=== PATIENT | female | born 1965 | race Caucasian/White ===

== ENCOUNTER → 2016-12-25 | Outpatient (CLI) | payer MEDICARE, BC ==
[~2016-12-25] MED LIST: ALBU0.63 NEB; ASPI81TA2 PO; FLUT1DIS3 IH; GABA-586 PO; HYDR-2762 PO; IPRA0.2S5 NEB; MOME13HF IH; OXYC10TA32 PO; POTA20TA12 PO; ROPI0.5T PO; THEO400T2 PO
--- NOTE | 2016-12-25 15:48 | RAD ---
Thyroid ultrasound, 12/25/2016: History: Possible thyroid nodule The right lobe of the gland measures 4.9 x 1.5 x 1.6 cm while the left lobe of the gland measures 4.5 x 1.2 x 1.1 cm. The echo pattern of the gland is mildly heterogeneous. There is a 2 mm hypoechoic nodule at the junction of the right lobe of the gland and the isthmus. A similar small nodule is seen at the junction of the left lobe of the gland and the isthmus. These nodules demonstrate smooth margins. The left nodule demonstrates posterior acoustic enhancement and is probably a colloid cyst. The features of the tiny right nodule are nonspecific. No thyroid calcifications are identified. No other thyroid abnormality is seen. IMPRESSION: 1. Tiny nonspecific right thyroid nodule. Sonographic follow-up may be useful to establish stability. 2. Tiny left thyroid cyst.
== END | disposition home or self-care (01) ==
LOC: US 10:45
PROVIDERS: ATTEND Nurse Practitioner
DX: E04.1 Nontoxic single thyroid nodule (principal)
CPT/HCPCS: 76536

== ENCOUNTER → 2017-01-13 | Outpatient (CLI) | payer MEDICARE, BC ==
--- NOTE | 2017-01-13 12:29 | RAD ---
Right hip, single view, 01/13/2017: History: Fall, pain A single frog-leg view of the right hip is presented for review. This limited exam demonstrates no acute fracture or dislocation. Right RIBS, 2 views, 01/13/2017: The bony structures are demineralized. No rib fracture is identified. There is no evidence of underlying pneumothorax or hemothorax. IMPRESSION: 1. Demineralization. 2. No acute right rib abnormality is detected.
== END | disposition home or self-care (01) ==
LOC: DXRADRC 10:17
PROVIDERS: ATTEND Physician Assistant Medical
DX: M25.551 Pain in right hip (principal); R07.81 Pleurodynia; M81.0 Age-related osteoporosis without current pathological fracture; W19.XXXA Unspecified fall, initial encounter; Y93.89 Activity, other specified; Y92.89 Other specified places as the place of occurrence of the external cause; Y99.8 Other external cause status
CPT/HCPCS: 71100; 73501

== ENCOUNTER → 2017-01-30 | Outpatient (CLI) | payer MEDICARE, BC ==
[~2017-01-30] MED LIST changes: +ASPI-630 PO; -ASPI81TA2 PO; -OXYC10TA32 PO; +OXYC10TA45 PO
--- NOTE | 2017-01-30 15:01 | RAD ---
CT head without contrast History: History of fall 2 weeks back, hit head, dizziness. Comparison: 12/02/2011. Procedure: Axial images are obtained of the head from the skull base through the vertex without IV contrast. Findings: The ventricles and sulci are normal for the patient's age. No mass-effect, intracranial mass, midline shift, hemorrhage or obvious acute infarction is identified. Basilar cisterns are patent. Bone windows demonstrate no significant calvarial abnormality. The visualized paranasal sinuses appear clear. Faint hyperdensities identified in the bilateral temporal lobe region likely artifactual due to motion artifact. Impression: 1. No acute intracranial process. Faint hyperdensity seen in the bilateral temporal lobes probably artifactual due to motion. PQRS Compliance Statement: One or more of the following individualized dose reduction techniques were utilized for this examination: 1. Automated exposure control 2. Adjustment of the mA and/or kV according to patient size 3. Use of iterative reconstruction technique
== END | disposition home or self-care (01) ==
LOC: CT 14:22
PROVIDERS: ATTEND Physician Assistant Medical
DX: W19.XXXA Unspecified fall, initial encounter (principal); R42 Dizziness and giddiness
CPT/HCPCS: 70450

== ENCOUNTER 2017-04-09 06:48 | Emergency (ER) | payer MEDICARE, BC ==
[~2017-04-09] VITALS: Ht 167.6 cm; Wt 50.8 kg
[2017-04-09] MEDS ORDERED: LIDOCAINE WITH 8.4% SOD BICARB 3 ML DISP.SYRIN. IJ ONE (06:58)
[2017-04-09] MEDS ORDERED: TETANUS AND DIPHTHERIA TOX/PF 0.5 ML VIAL. VAX IM ONE (07:15)
[2017-04-09] MEDS ORDERED: AMOX1TAB61 PO (07:19)
--- NOTE | 2017-04-09 07:19 | PHYS DOC ---
Past History Past Medical History: CVA Past Surgical History: Hysterectomy Alcohol Use: Occasionally Drug Use: None Adult General Chief Complaint Chief Complaint: LACERATION/AVULSION HPI HPI This is a pleasant right hand dominant 51-year-old female with a history of COPD and stroke in the past but presents the emergency department today with a right hand laceration of the dorsum of her right thumb. It occurred was she was breaking up a fight between her cat and dog when the cat scratched her. She has mild pain that is nonradiating without alleviating factors and is constant. She denies any other injuries. Review of systems was negative for chest pain shortness of breath abdominal pain or any other injuries. All other review of systems is negative unless otherwise noted in history of present illness. ED course: 51-year-old female presenting to the emergency department with a scratch over the dorsum of her right hand. Pertinent physical exam findings showed a superficial laceration over the dorsum of the right thumb. No foreign bodies on inspection. The laceration was inspected under good lighting with good hemostasis and was found to be without any foreign bodies or tendon lacerations. It was inspected under full range of motion of the thumb. The wound was washed out with about 1 L of sterile saline under mild pressure and cleansed with Betadine. I had a risk-benefit discussion with the patient about possible closure by secondary intention or delayed suture repair due to concern for possible infection. Collectively, we decided to wash it out today and close it primarily. The patient's cat is up-to-date on vaccines and has not been foaming at the mouth. No evidence of hydro-phobia. The patient states that she can watch her animal and observe for signs of rabies. The patient was then discharged home in stable condition to follow up with their primary care physician over the next 7 days for suture removal. They were to return if their symptoms worsened or if they were concerned for any reason. [id number] discharge instructions and return precautions were given. Patient's questions were answered to their satisfaction. Patient is comfortable plan. Review of Systems Review of Systems SEE ABOVE. Current Medications Current Medications Current Medications Medications (Trade) Dose Ordered Sig/La Nena Start Time Stop Time Status Last Admin Dose Admin Diphtheria/ Tetanus/Acell Pertussis (Boostrix) 0.5 ml ONCE ONCE 04/09/17 07:30 04/09/17 07:31 Lidocaine/Sodium Bicarbonate (Buffered Lidocaine 1%) 3 ml STK-MED ONCE 04/09/17 06:58 04/09/17 06:59 DC Tetanus/ Diphtheria Toxoids Adsorbed (Tenivac Vial) 0.5 ml ONCE ONCE 04/09/17 07:15 04/09/17 07:16 UNV Allergies Allergies Allergies Coded Allergies Type Severity Reaction Last Updated Verified Sulfa (Sulfonamide Antibiotics) Allergy Unknown 12/13/14 Yes Physical Exam Physical Exam see above Constitutional: Well developed, well nourished, no acute distress, non-toxic appearance. [] HENT: Normocephalic, atraumatic, bilateral external ears normal, oropharynx moist, no oral exudates, nose normal. [] Eyes: PERRLA, EOMI, conjunctiva normal, no discharge. [] Neck: Normal range of motion, no tenderness, supple, no stridor. [] Cardiovascular:Heart rate regular rhythm, no murmur [] Lungs & Thorax: Bilateral breath sounds clear to auscultation [] Abdomen: Bowel sounds normal, soft, no tenderness, no masses, no pulsatile masses. [] Skin: Warm, dry, no erythema, no rash. [] Back: No tenderness, no CVA tenderness. [] Extremities: see above Neurologic: Alert and oriented X 3, normal motor function, normal sensory function, no focal deficits noted. [] Psychologic: Affect normal, judgement normal, mood normal. [] Current Patient Data Vital Signs Vital Signs Date Time Temp Pulse Resp B/P (MAP) Pulse Ox O2 Delivery O2 Flow Rate FiO2 04/09/17 07:10 98.1 120 18 93 Room Air EKG EKG [] Radiology/Procedures Radiology/Procedures [] Course & Med Decision Making Course & Med Decision Making Pertinent Labs and Imaging studies reviewed. (See chart for details) [] Dragon Disclaimer Dragon Disclaimer This chart was dictated in whole or in part using Voice Recognition software in a busy, high-work load, and often noisy Emergency Department environment. It may contain unintended and wholly unrecognized errors or omissions. Departure Departure: Impression: Primary Impression: Hand laceration Disposition: HOME, SELF-CARE Condition: STABLE Referrals: LEX MCHUGH (PCP) Patient Instructions: Laceration Care, Adult Additional Instructions: Thank you for allowing us to participate in your care today. Followup with your primary care physician in 7 days for suture removal. Call your Primary Doctor tomorrow and inform them of your visit today. If you do not have a primary care provider you can ask for a list of our primary care providers. Return to the emergency department you have any new or concerning findings. This should be evaluated by the primary care physician and any necessary consulting services for continued management within a few days after discharge. Return to emergency room if you have any new or concerning symptoms including but not limited to fever, chills, nausea, vomiting, intractable pain, any new rashes, chest pain, shortness of air, uncontrolled bleeding, difficulty breathing, and/or vision loss. Scripts Amoxicillin/Potassium Clav (AUGMENTIN 875-125 TABLET) 1 Each Tablet 1 TAB PO BID, #20 TAB Prov: BLU NAQVI MD 04/09/17 Laceration Repair Lac Repair Indication: [] Hand laceration Procedure: The patient was placed in the appropriate position and anesthesia around the right hand. 1% buffered lidocaine used for anesthesia. The area was washed out with sterile saline approximately 1 L with mild to moderate pressure along with cleansing of the hand with Betadine and allowing for sufficient drying time. Laceration was then closed using a simple interrupted technique using 5 nonabsorbable 5-0 sutures. Total repaired wound length: 2.5 cm. Other Items: The patient tolerated the procedure well. Complications: none. BLU NAQVI MD Apr 09, 2017 07:19
[2017-04-09] MEDS ORDERED: DIPHTH,PERTUSS(ACELL),TET TOX 0.5 ML DISP.SYRIN. VAX IM ONE (07:30)
[2017-04-09 07:33] VITALS: BP 122/53
== END 2017-04-09 07:35 | disposition home or self-care (01) ==
LOC: ER 06:48
DX: S61.011A Laceration without foreign body of right thumb without damage to nail, initial encounter (principal); J44.9 Chronic obstructive pulmonary disease, unspecified; Z86.73 Personal history of transient ischemic attack (TIA), and cerebral infarction without residual deficits; Z88.2 Allergy status to sulfonamides; W55.03XA Scratched by cat, initial encounter; Y93.89 Activity, other specified; Y99.8 Other external cause status; Y92.89 Other specified places as the place of occurrence of the external cause
CPT/HCPCS: 12001; 90471; 90715; 99283-25

== ENCOUNTER → 2017-06-02 | Outpatient (CLI) | payer MEDICARE, BC ==
[~2017-06-02] MED LIST changes: +AMOX1TAB61 PO
--- NOTE | 2017-06-02 13:40 | RAD ---
Indication chest congestion and productive cough for one week. Frontal and lateral views of the chest were obtained and are compared to a study 01/13/2017. There are background changes compatible with emphysema or fibrosis similar to the previous exam. There is no consolidated pneumonia significant pleural fluid collection or pneumothorax. Mild hyperexpansion is noted. IMPRESSION: Chronic changes. No acute finding seen.
== END | disposition home or self-care (01) ==
LOC: DXRADRC 13:08
PROVIDERS: ATTEND Physician Assistant Medical
DX: R09.89 Other specified symptoms and signs involving the circulatory and respiratory systems (principal); R05 Cough
CPT/HCPCS: 71020

== ENCOUNTER → 2017-07-10 | Outpatient (CLI) | payer BC, MEDICARE ==
--- NOTE | 2017-07-10 08:32 | RAD ---
INDICATION: CHEST CONGESTION W PROD COUGH X 4 DAYS COMPARISON: 06/02/2017 FINDINGS: 2 views chest obtained. Coarsened interstitial markings are again seen throughout the bilateral lungs. No definite focal airspace consolidation. Calcific atherosclerosis. IMPRESSION: Coarsened lung markings are again seen throughout the bilateral lungs. Could be secondary to chronic lung disease such as emphysema or fibrosis. No definite new region of focal airspace consolidation.
== END | disposition home or self-care (01) ==
LOC: DXRADRC 08:03
PROVIDERS: ATTEND Physician Assistant Medical
DX: R09.89 Other specified symptoms and signs involving the circulatory and respiratory systems (principal); R05 Cough; I70.90 Unspecified atherosclerosis; F17.210 Nicotine dependence, cigarettes, uncomplicated
CPT/HCPCS: 71020

== ENCOUNTER → 2017-08-28 | Outpatient (CLI) | payer MEDICARE, BC ==
--- NOTE | 2017-08-28 13:52 | RAD ---
Chest, 2 views, 08/28/2017: History: Cough, congestion Comparison is made to a study from 07/10/2017. The lungs are hyperexpanded suggesting emphysema. There is pleural scarring over the apices. There appear to be a few other scattered parenchymal scars. The heart size is within normal limits. There is calcific plaquing of the aorta. No acute infiltrate is seen. There is no evidence of pleural fluid. Surgical clips are projected over the left axillary region. IMPRESSION: 1. Emphysema with parenchymal scarring. 2. No acute cardiopulmonary abnormality is detected.
== END | disposition home or self-care (01) ==
LOC: PMG 13:21
PROVIDERS: ATTEND Physician Assistant Medical
DX: J43.9 Emphysema, unspecified (principal); J98.4 Other disorders of lung; F17.200 Nicotine dependence, unspecified, uncomplicated; Z72.89 Other problems related to lifestyle
CPT/HCPCS: 71020

== ENCOUNTER 2017-10-10 18:06 | Inpatient (IN) | payer MEDICARE, BC ==
[~2017-10-10] VITALS: Ht 165.1 cm; Wt 46.9 kg
--- NOTE | 2017-10-10 18:19 | ED.ADGEN ---
Past History Past Medical History: CVA Past Surgical History: Hysterectomy Alcohol Use: Occasionally Drug Use: None Adult General Chief Complaint Chief Complaint " I all sudden got chest pain today while walking.. [place].... and it has never gone away.. I did have some interment temps the last three days... and some coughing.. I do have asthma and copd....and everyone around me have had colds and flu..."" I did get a flu shot this year..." HPI HPI Patient is a 51 year old female who presents with above hx and complaints of myalgia, arthralgia, malaise, fever, nonproductive cough, and chest pain. Patient denies any specific ill contacts. No recent travel. No history immunosuppression. Patient does have a history of chronic lung disease with history of COPD and asthma. Patient reports chest pain is left chest wall and exacerbated by deep breaths and cough. Patient normally follows with Dr. Prescott. Review of Systems Review of Systems Constitutional: History of fever or chills [] Eyes: Denies change in visual acuity, redness, or eye pain [] HENT: History of nasal congestion or sore throat [] Respiratory: History of a nonproductive cough and shortness of breath [] Cardiovascular: No additional information not addressed in HPI [] GI: Denies abdominal pain, nausea, vomiting, bloody stools or diarrhea [] : Denies dysuria or hematuria [] Musculoskeletal: Denies back pain or joint pain [] Integument: Denies rash or skin lesions [] Neurologic: Denies headache, focal weakness or sensory changes [] Endocrine: Denies polyuria or polydipsia [] All other systems were reviewed and found to be within normal limits, except as documented in this note. Family History Family History Noncontributory Current Medications Current Medications Current Medications Medications (Trade) Dose Ordered Sig/La Nena Start Time Stop Time Status Last Admin Dose Admin Albuterol/ Ipratropium (Duoneb) 3 ml 1X ONCE 10/10/17 19:00 10/10/17 19:01 DC Aspirin (Children'S Aspirin) 324 mg 1X ONCE 10/10/17 19:00 10/10/17 19:01 DC 10/10/17 19:35 324 MG Enoxaparin Sodium (Lovenox) 50 mg 1X ONCE 10/11/17 00:30 10/11/17 00:31 DC Info (Do NOT chart on this entry -- for MONITORING) 1 each PRN DAILY PRN 10/10/17 23:15 10/12/17 23:14 Iohexol (Omnipaque 300 Mg/ml) 75 ml 1X ONCE 10/10/17 23:15 10/10/17 23:16 DC 10/11/17 01:18 75 ML Methylprednisolone Sodium Succinate (SOLU-Medrol 125MG VIAL) 125 mg 1X ONCE 10/10/17 19:00 10/10/17 19:01 DC 10/10/17 19:25 125 MG Ondansetron HCl (Zofran) 4 mg PRN Q4HRS PRN 10/11/17 01:15 10/12/17 01:14 Allergies Allergies Allergies Coded Allergies Type Severity Reaction Last Updated Verified Sulfa (Sulfonamide Antibiotics) Allergy Unknown 12/13/14 Yes Physical Exam Physical Exam Constitutional: Moderately acute acute distress, non-toxic appearance. [] HENT: Normocephalic, atraumatic, bilateral external ears normal, oropharynx moist, injected pharynx, no oral exudates, nose swollen turbinates with rhinorrhea Eyes: PERRLA, EOMI, conjunctiva normal, no discharge. [] Neck: Normal range of motion, no tenderness, supple, no stridor. [] Cardiovascular: Tachycardia Heart rate regular rhythm, no murmur [] Lungs & Thorax: Bilateral breath sounds equal at apexes with scattered wheezes on auscultation []left chest wall tenderness on palpation anterior axillary line at T8-9 Abdomen: Bowel sounds normal, soft, no tenderness, no masses, no pulsatile masses. Scar Skin: Warm, dry, no erythema, no rash. [] Back: No tenderness, no CVA tenderness. [] Extremities: No tenderness, no cyanosis, no clubbing, ROM intact, no edema. No obvious cording Neurologic: Alert and oriented X 3, normal motor function, normal sensory function, no focal deficits noted. [] Psychologic: Affect anxious, judgement normal, mood normal. [] Current Patient Data Vital Signs Vital Signs Date Time Temp Pulse Resp B/P (MAP) Pulse Ox O2 Delivery O2 Flow Rate FiO2 10/10/17 18:29 99 Nasal Cannula 2.0 10/10/17 18:15 99.7 125 22 Lab Results Laboratory Tests Test 10/10/17 19:00 10/10/17 19:20 Influenza Type A (Rapid) Negative (NEGATIVE) Influenza Type B (Rapid) Negative (NEGATIVE) Group A Streptococcus Rapid Negative (NEGATIVE) White Blood Count 13.8 x10^3/uL (4.0-11.0) H Red Blood Count 3.97 x10^6/uL (3.50-5.40) Hemoglobin 12.2 g/dL (12.0-15.5) Hematocrit 36.1 % (36.0-47.0) Mean Corpuscular Volume 91 fL (79-100) Mean Corpuscular Hemoglobin 31 pg (25-35) Mean Corpuscular Hemoglobin Concent 34 g/dL (31-37) Red Cell Distribution Width 13.9 % (11.5-14.5) Platelet Count 327 x10^3/uL (140-400) Neutrophils (%) (Auto) 85 % (31-73) H Lymphocytes (%) (Auto) 7 % (24-48) L Monocytes (%) (Auto) 8 % (0-9) Eosinophils (%) (Auto) 0 % (0-3) Basophils (%) (Auto) 0 % (0-3) Neutrophils # (Auto) 11.7 x10^3uL (1.8-7.7) H Lymphocytes # (Auto) 1.0 x10^3/uL (1.0-4.8) Monocytes # (Auto) 1.0 x10^3/uL (0.0-1.1) Eosinophils # (Auto) 0.0 x10^3/uL (0.0-0.7) Basophils # (Auto) 0.0 x10^3/uL (0.0-0.2) Prothrombin Time 11.6 SEC (9.4-11.4) H Prothrombin Time INR 1.1 (0.9-1.1) PTT 28 SEC (23-33) D-Dimer (Tere) 0.93 mg/L (0.00-0.50) H Sodium Level 138 mmol/L (136-145) Potassium Level 3.9 mmol/L (3.5-5.1) Chloride Level 101 mmol/L (98-107) Carbon Dioxide Level 31 mmol/L (21-32) Anion Gap 6 (6-14) Blood Urea Nitrogen 14 mg/dL (7-20) Creatinine 0.7 mg/dL (0.6-1.0) Estimated GFR (Cockcroft-Gault) 87.9 Glucose Level 124 mg/dL (70-99) H Calcium Level 8.9 mg/dL (8.5-10.1) Magnesium Level 1.8 mg/dL (1.8-2.4) Total Bilirubin 0.7 mg/dL (0.2-1.0) Direct Bilirubin 0.2 mg/dL (0.0-0.2) Aspartate Amino Transferase (AST) 16 U/L (15-37) Alanine Aminotransferase (ALT) 13 U/L (14-59) L Alkaline Phosphatase 87 U/L (46-116) Creatine Kinase 39 U/L (26-192) Creatine Kinase MB (Mass) < 0.5 ng/mL (0.0-3.6) Creatine Kinase MB Relative Index 1.3 % (0-4) Troponin I Quantitative < 0.017 ng/mL (0-0.055) WZ-Ajl-E-Type Natriuretic Peptide 275 pg/mL (0-124) H Total Protein 7.0 g/dL (6.4-8.2) Albumin 2.9 g/dL (3.4-5.0) L Lipase 60 U/L (73-393) L EKG EKG My interpretation EKG shows a sinus tachycardia at 130 bpm. Strain pattern. But no findings acute STEMI of contralateral changes[] Radiology/Procedures Radiology/Procedures My interpretation of chest x-ray shows chronic emphysema/COPD type changes. Lung volumes appear to be hyperexpanded and cystic changes with adenopathy. CT shows no central pulmonary embolism. Does have findings of hilar adenopathy. And chronic emphysema changes. See formal report when available Course & Med Decision Making Course & Med Decision Making Pertinent Labs and Imaging studies reviewed. (See chart for details) Stress presentation testing and treatment plan with Dr. Marquez-will admit for further evaluation and treatment. [] Final Impression Final Impression 1. Dyspnea[] 2. COPD exacerbation 3. Leukocytosis, 4. Malnutrition Alb. 2.9 5. Elevated D-dimer 6. DM 7. Chest Pain Problems: Dragon Disclaimer Dragon Disclaimer This electronic medical record was generated, in whole or in part, using a voice recognition dictation system. DAMON GOINS MD Oct 10, 2017 18:19
[2017-10-10] MEDS ORDERED: IPRATRPIUM/ALBUTEROL 0.5/2.5MG 3 ML NEBU. ONE (18:23)
[2017-10-10] MEDS ORDERED: methylPREDNISolone SOD SUCC PF 125 MG/2 ML VIAL. IV ONE (19:00)
[2017-10-10] MEDS ORDERED: ASPIRIN 81 MG TAB.CHEW PO ONE (19:00)
[2017-10-10] MEDS ORDERED: IPRATRPIUM/ALBUTEROL 0.5/2.5MG 3 ML NEBU. NEB ONE (19:00)
[2017-10-10 19:45] LABS: BASO % 0 % (0-3); EOS % 0 % (0-3); HEMATOCRIT 36.1 % (36.0-47.0); HEMOGLOBIN 12.2 g/dL (12.0-15.5); LYMPH % 7 % (24-48); MEAN CORPUSCULAR HEMOGLOBIN 31 pg (25-35); MEAN CORPUSCULAR HGB CONC 34 g/dL (31-37); MEAN CORPUSCULAR VOLUME 91 fL (79-100); MONO % 8 % (0-9); NEUT # 11.7 x10^3uL (1.8-7.7); NEUT % 85 % (31-73); PLATELET COUNT 327 x10^3/uL (140-400); RED BLOOD COUNT 3.97 x10^6/uL (3.50-5.40); RED CELL DISTRIBUTION WIDTH 13.9 % (11.5-14.5); WHITE BLOOD COUNT 13.8 x10^3/uL (4.0-11.0)
--- NOTE | 2017-10-10 19:57 | EKG ---
[address] [address] Test Date: 2017-10-10 Test Time: 18:17:17 Pat Name: LIZBETH OHARA Department: Room: Gender: F Wound Specialist: JESSY : 1965 Requested By: DAMON GOINS Order Number: [id number] Reading MD: Lamine Knight MD Measurements Intervals Stanley Rate: 130 P: 90 [place]: 106 QRS: 77 QRSD: 70 T: 85 QT: 274 QTc: 403 Interpretive Statements SINUS TACHYCARDIA Electronically Signed On 10-13-2017 17:22:37 [employer]IC by Lamine Knight MD
[2017-10-10 20:09] LABS: ALBUMIN 2.9 g/dL (3.4-5.0); ALK PHOS 87 U/L (46-116); ALT (SGPT) 13 U/L (14-59); ANION GAP 6 (6-14); AST (SGOT) 16 U/L (15-37); BLOOD UREA NITROGEN 14 mg/dL (7-20); CALCIUM 8.9 mg/dL (8.5-10.1); CARBON DIOXIDE 31 mmol/L (21-32); CHLORIDE 101 mmol/L (98-107); CREATINE KINASE 39 U/L (26-192); CREATININE 0.7 mg/dL (0.6-1.0); GFR 87.9; GLUCOSE 124 mg/dL (70-99); LIPASE 60 U/L (73-393); MAGNESIUM 1.8 mg/dL (1.8-2.4); POTASSIUM 3.9 mmol/L (3.5-5.1); SODIUM 138 mmol/L (136-145); TOTAL BILIRUBIN 0.7 mg/dL (0.2-1.0)
[2017-10-10 20:11] LABS: DIRECT BILIRUBIN 0.2 mg/dL (0.0-0.2)
[2017-10-10 20:19] LABS: INFLUENZA A PATIENT NEGATIVE (NEGATIVE); INFLUENZA B PATIENT NEGATIVE (NEGATIVE)
[2017-10-10] MEDS ORDERED: CONTRAST GIVEN MC PRN (23:15)
[2017-10-10] MEDS ORDERED: IOHEXOL 300 MG/ML 75 ML VIAL. IV ONE (23:15)
[2017-10-11] MEDS: ENOXAPARIN 40 MG/0.4 ML DISP.SYRIN. SQ ONE (00:30)
[2017-10-11] MEDS ORDERED: ONDANSETRON PF 4 MG/2 ML VIAL. IV PRN (01:15)
--- NOTE | 2017-10-11 01:34 | RAD ---
INDICATION: Omni 300, 75 ml IV. Elevated d-dimer. No prior exams for comparison COMPARISON: None. TECHNIQUE: Axial CT images obtained through the chest. Intravenous contrast utilized. Angiogram 3D images processed per protocol. One or more of the following individualized dose reduction techniques were utilized for this examination: 1. Automated exposure control; 2. Adjustment of the mA and/or kV according to patient size; 3. Use of iterative reconstruction technique. FINDINGS: Hyperexpanded lungs with cystic changes throughout the bilateral lungs. Subpleural opacity is seen within the left lung anteriorly. There is also patchy nodular opacity near the left lung base with some on the right as well including of the right lung base. No evidence of pneumothorax. Calcific atherosclerosis. Portion of ascending thoracic aorta is obscured by motion but no definite aneurysm or dissection flap. There are some enlarged lymph nodes at bilateral hilum and mediastinum. No central pulmonary embolus. IMPRESSION: 1. No central pulmonary embolus. 2. Patchy masslike opacities in bilateral lungs. Could be infectious or inflammatory in nature but a follow-up will be needed to ensure that these resolve to ensure that this is not secondary to neoplastic causes. There is also mediastinal and hilar lymphadenopathy. This could be reactive in nature but neoplastic causes are within the differential and follow-up will be needed. 3. Cystic changes throughout the lungs which can be seen with chronic lung disease such as emphysema. Electronically signed by: Sideny Sanchez MD (10/11/2017 1:31 AM) [facility]
[2017-10-11] MEDS ORDERED: ENOXAPARIN ** NOTE DOSE ** SYRINGE SQ ONE ×2 (01:56→02:00)
[2017-10-11] MEDS ORDERED: IPRATRPIUM/ALBUTEROL 0.5/2.5MG 3 ML NEBU. NEB ONE (02:00)
[2017-10-11 03:41] VITALS: BP 130/82
[2017-10-11] MEDS ORDERED: ALBU8.5H8 INH (04:24)
[2017-10-11] MEDS ORDERED: OXYC15TA PO (04:24)
[2017-10-11] MEDS ORDERED: ROPI0.5T2 PO (04:24)
[2017-10-11] MEDS ORDERED: FLUT12AE INH (04:24)
[2017-10-11] MEDS ORDERED: TIOT4MIS3 IH (04:24)
[2017-10-11] MEDS ORDERED: CHOL500050 PO (04:24)
[2017-10-11] MEDS ORDERED: OMEP40CA5 PO (04:24)
[2017-10-11] MEDS ORDERED: IPRATRPIUM/ALBUTEROL 0.5/2.5MG 3 ML NEBU. NEB SCH ×2 (08:00→12:00)
[2017-10-11] MEDS ORDERED: ENOXAPARIN ** NOTE DOSE ** SYRINGE SQ SCH (09:00)
[2017-10-11] MEDS ORDERED: AZITHROMYCIN 250 MG TABLET. PO SCH (09:00)
[2017-10-11] MEDS ORDERED: methylPREDNISolone SOD SUCC PF 40 MG/ML VIAL. IV SCH (09:00)
[2017-10-11] MEDS ORDERED: LACTOBACILLUS RHAMNOSUS GG 1 CAPSULE. PO SCH (09:00)
[2017-10-11] MEDS ORDERED: cefTRIAXone IV Push 1 GM VIAL. IVP SCH (09:00)
[2017-10-11] MEDS ORDERED: ASPIRIN 81 MG TAB.CHEW PO SCH ×2 (09:00→10:00)
--- NOTE | 2017-10-11 09:01 | RAD ---
Indication: Dyspnea. Lower rib pain with inspiration. Breast cancer with left lumpectomy. Technique: Two-view chest radiograph was obtained. Comparison is from August 28, 2017. Findings: There is hyperinflation with flattening of the diaphragm. Interstitial lung markings are coarsened. There is no airspace disease. There is no pleural effusion. The heart is not enlarged and there is no heart failure. Left axillary clips are noted. Impression: Findings suggesting emphysema.
[2017-10-11] MEDS ORDERED: FLUTICASONE PROPIONATE 110 MCG INH PRN (09:15)
[2017-10-11] MEDS ORDERED: ALBUTEROL SULFATE 8GM INHALER. INH PRN (09:15)
[2017-10-11] MEDS ORDERED: ALBUTEROL SULFATE 2.5 MG/3 ML NEBU. NEB PRN (09:30)
[2017-10-11] MEDS ORDERED: BUDESONIDE 0.5 MG/2 ML NEBU NEB SCH (10:00)
[2017-10-11] MEDS ORDERED: PANTOPRAZOLE 40 MG TABLET. PO SCH (10:00)
[2017-10-11] MEDS ORDERED: oxyCODONE IR 5 MG TABLET PO PRN (10:00)
[2017-10-11] MEDS ORDERED: POTASSIUM CHLORIDE 20 MEQ TABLET.ER. PO SCH (10:00)
[2017-10-11] MEDS ORDERED: THEOPHYLLINE ANHYDROUS 400 MG TABLET.ER. PO SCH (10:00)
[2017-10-11] MEDS ORDERED: oxyCODONE IR 5 MG TABLET ONE (10:47)
[2017-10-11] MEDS ORDERED: DOXY100C2 PO (11:16)
[2017-10-11] MEDS ORDERED: PRED-220 PO (11:16)
[2017-10-11 11:39] VITALS: BP 122/79
[2017-10-11] MEDS ORDERED: GABAPENTIN 300 MG CAPSULE. PO SCH (14:00)
[2017-10-11] MEDS ORDERED: rOPINIRole 0.5 MG TABLET. PO SCH (21:00)
[2017-10-12] MEDS ORDERED: NON FORMULARY ITEM (Tiotropium Br/Olodaterol HCl (Stiolto Respimat Inhal Spray) 4 GM) IH SCH (09:00)
[2017-10-12] MEDS ORDERED: ENOXAPARIN 30 MG/0.3 ML DISP.SYRIN. SQ SCH (09:00)
--- NOTE | 2017-10-12 10:36 | SSS ---
ADMIT DATE: 10/11/2017 Stay was greater than 8 hours and less than 24 hours. Care was given by myself. DISCHARGE DIAGNOSES: 1. Acute bronchitis. 2. Exacerbation of chronic obstructive pulmonary disease. 3. Febrile illness, suspect pneumonia. 4. Abnormal CAT scan with an abnormal CT of the chest showing patchy mass-like opacities in both lungs. Consider infectious or inflammatory, also mediastinal and hilar lymphadenopathy. 5. Elevated D-dimer, pulmonary embolism ruled out. 6. History of breast cancer. A 14-year long-term survival, but must be concerned regarding the CT scan. Please note the patient basically insisted on being discharged today because of family circumstances. HISTORY OF PRESENT ILLNESS AND HOSPITAL COURSE: This is a 51-year-old female with COPD, oxygen requiring, and hypoxic respiratory failure with a long history of smoking, having quit, who presented to the ER with a left-sided chest pain and we could not palpate and it was actually way below the heart. The pain lasted the whole day. She was hot. She was cold. She had chills and a fever to 102. Strep screen negative and influenza also negative. HABITS: The patient quit smoking one-half years ago. PAST MEDICAL HISTORY: As stated, breast cancer, stage 2 with having undergone a lumpectomy 14 years ago; COPD; chronic hypoxic respiratory failure; history of stroke. PAST SURGICAL HISTORY: Hysterectomy, lumpectomy on the left. MEDICATIONS: Reviewed, available on the MAR. REVIEW OF SYSTEMS: As per HPI. The patient denies weight loss. OBJECTIVE: VITAL SIGNS: Blood pressure 122/79, pulse 110, temperature 98.3, pulse ox 96% on 2 liters, height 65 inches, weight 103.5 pounds. GENERAL: Frail appearing 51-year-old. HEENT: Her hearing was normal. Her eyes were clear. Posterior pharynx was clear. NECK: Supple. LUNGS: With inspiratory and expiratory wheezes. CARDIOVASCULAR: Regular rhythm and rate. ABDOMEN: Soft, nontender, no organomegaly, could not palpate this left-sided tenderness. EXTREMITIES: Without edema. LABORATORY DATA: CAT scan abnormal showing patchy mass-like opacities in the bilateral lungs either infectious or inflammatory, but cannot rule out neoplastic, also mediastinal adenopathy. White blood cell count was 13.8. Chemistry profile essentially normal, but the albumin was 2.9. TSH 0.408. D-dimer was 0.93. PE was ruled out. PLAN: The patient stated she would not stay under any circumstances. The patient was stable, although I prefer that she stay and I did tell her that I will make a note in my record that she refused to stay and it was against my medical advice. I did not make her sign that per se. She will go home on prednisone, antibiotic, breathing treatments which she already does, will follow up with Candy Prescott for repeat CAT scan in 1 month. I did advise her of the results of the CAT scan that it may be cancerous although with a high white count and fever, seems more likely to be infectious. I advised her though that it is possible that she may wind up back in the hospital if she does not improve at home. She understands that she is also to take some Mucinex. JORDANA MEEKS DO DR: ADAMA/priscila JOB#: [id number] / [id number] CANDY Mckeon
[2017-10-18] MEDS ORDERED: CHOLECALCIFEROL (VITAMIN D3) 1,000 UNIT TABLET PO SCH (09:00)
== END 2017-10-11 11:30 | disposition home or self-care (01) | DRG 871 ==
LOC: ER 18:06 → 1 SOUTH 10-11 01:52
PROVIDERS: ADMIT Family Medicine; ATTEND Family Medicine
DX: A41.9 Sepsis, unspecified organism (principal); J18.9 Pneumonia, unspecified organism; J96.11 Chronic respiratory failure with hypoxia; E46 Unspecified protein-calorie malnutrition; J44.1 Chronic obstructive pulmonary disease with (acute) exacerbation; Z68.1 Body mass index [BMI] 19.9 or less, adult; J44.0 Chronic obstructive pulmonary disease with (acute) lower respiratory infection; J20.9 Acute bronchitis, unspecified; E11.9 Type 2 diabetes mellitus without complications; M79.1 Myalgia; Z85.3 Personal history of malignant neoplasm of breast; Z86.73 Personal history of transient ischemic attack (TIA), and cerebral infarction without residual deficits; Z87.891 Personal history of nicotine dependence; Z90.710 Acquired absence of both cervix and uterus; Z88.2 Allergy status to sulfonamides; Z79.4 Long term (current) use of insulin
CPT/HCPCS: 36415; 71046; 71275; 80048; 80076; 82553; 83690; 83735; 83880; 84443; 84484; 85025; 85379; 85610; 85730; 87040; 87070; 87804; 87880; 93005; 94640; 96372; 96374; J0456; J0696; J1650; J2405; J2920; J2930; J7620; J7626; Q9967; 99285-25

== ENCOUNTER → 2017-12-21 | Outpatient (CLI) | payer MEDICARE, BC ==
[~2017-12-21] MED LIST changes: +ALBU8.5H8 INH; +CHOL500050 PO; +DOXY100C2 PO; +FLUT12AE INH; +OMEP40CA5 PO; +OXYC15TA PO; +PRED-220 PO; +ROPI0.5T2 PO; +TIOT4MIS3 IH
--- NOTE | 2017-12-21 08:30 | RAD ---
Chest, 2 views, 12/21/2017: History: Chest congestion, cough Comparison is made to a study from 10/10/2017. The lungs are hyperexpanded in this patient with known emphysema. The heart size is normal. There is calcific plaquing of aorta. The pulmonary markings are coarsened compatible with scarring. No new pulmonary opacities are seen. There is no evidence of pleural fluid or pneumothorax. Surgical clips are projected over the left axillary region. IMPRESSION: 1. Emphysema with parenchymal scarring. 2. No new chest abnormality is detected.
== END | disposition home or self-care (01) ==
LOC: PMG 07:48
PROVIDERS: ATTEND Physician Assistant Medical
DX: J43.9 Emphysema, unspecified (principal); E11.9 Type 2 diabetes mellitus without complications; Z79.4 Long term (current) use of insulin; Z87.891 Personal history of nicotine dependence
CPT/HCPCS: 71046

== ENCOUNTER 2018-11-09 12:32 | Emergency (ER) | payer MEDICARE, BC ==
[~2018-11-09] VITALS: Ht 165.1 cm; Wt 49.9 kg
[~2018-11-09 12:32] MED LIST changes: +ALBU2.5V8 INH; -ALBU8.5H8 INH; -HYDR-2762 PO; +HYDR-2765 PO; -OXYC10TA45 PO; +OXYC10TA46 PO; -OXYC15TA PO; +OXYC15TA61 PO
[2018-11-09 12:48] VITALS: BP 127/82
--- NOTE | 2018-11-09 13:19 | PHYS DOC ---
Past History Past Medical History: Cancer, COPD, Stroke Past Surgical History: Appendectomy, Cancer Surgery, Colectomy, , Hysterectomy, Tonsillectomy Alcohol Use: None Drug Use: None Adult General Chief Complaint Chief Complaint: RIB PAIN HPI HPI Patient is a 53-year-old female who presents to the due to chief complaint of right rib pain. Patient states that the pain started 2 days ago when her great Arya pose her and she was trying to hold him back and she fell onto a corner of the wall. Patient states that since then she is this pain. Patient states that she has a history of COPD and uses 2 L oxygen. PATIENT STATES THAT SHE QUIT SMOKING ABOUT 6 MONTHS AGO. Patient states that she takes oxycodone for chronic back pain. Review of Systems Review of Systems Constitutional: Denies fever or chills HENT: Denies nasal congestion, sore throat, sinus tenderness Respiratory: Denies cough or shortness of breath Cardiovascular: Denies CP GI: Denies abdominal pain, nausea, vomiting or diarrhea : Denies dysuria or hematuria Musculoskeletal: Denies back pain or joint pain, reports right lateral chest wall pain Skin: Denies rash or skin lesions. mild bruise in right axilla region Neurologic: Denies headache, focal weakness or sensory changes Complete systems were reviewed and found to be within normal limits, except as documented in this note. Allergies Allergies Allergies Coded Allergies Type Severity Reaction Last Updated Verified Sulfa (Sulfonamide Antibiotics) Allergy Unknown 12/13/14 Yes Physical Exam Physical Exam Constitutional: Well developed, well nourished, no acute distress, non-toxic appearance. HENT: Normocephalic, atraumatic, normocaphalic Eyes: PERRL, EOMI Neck: Normal range of motion, no tenderness, supple Cardiovascular:Heart rate regular rhythm, no murmur. Chest wall tenderness in right lateral chest Resp: Bilateral breath sounds clear to auscultation Abdomen: Soft, no tenderness, no distension Skin: Warm, dry, no erythema, no rash. small bruise in right axilla Back: No tenderness, no CVA tenderness. Extremities: No tenderness, ROM intact, no edema. Neurologic: Alert and oriented X 3, normal motor function, normal sensory function, no focal deficits noted. Psychologic: Affect normal, judgement normal, mood normal. Current Patient Data Vital Signs Vital Signs Date Time Temp Pulse Resp B/P (MAP) Pulse Ox O2 Delivery O2 Flow Rate FiO2 11/09/18 12:48 98.3 96 20 96 Nasal Cannula 2.0 EKG EKG [] Radiology/Procedures Radiology/Procedures 2 view right rib detail series and PA view chest x-ray Clinical indications: Fall. Pain in the right side of the chest. There is near right axilla. FINDINGS: There is a fracture of the posterior aspect of the right 11th rib. This is old seen on previous chest CT dated October 03, 2017. There is mild deformity of the lateral aspect of the right sixth rib. This may represent a nondisplaced rib fracture here. No pneumothorax or pleural effusion or acute lung infiltrate is seen. Hyperinflation is seen consistent with COPD. IMPRESSION: Nondisplaced fracture of the lateral aspect of the right sixth rib. Electronically signed by: Syed Barroso MD (11/09/2018 1:30 PM) [facility] Course & Med Decision Making Course & Med Decision Making Pertinent maging studies reviewed. (See chart for details) Ordered right rib series plus chest x-ray. 2 view right rib detail series and PA view chest x-ray Clinical indications: Fall. Pain in the right side of the chest. There is near right axilla. FINDINGS: There is a fracture of the posterior aspect of the right 11th rib. This is old seen on previous chest CT dated October 03, 2017. There is mild deformity of the lateral aspect of the right sixth rib. This may represent a nondisplaced rib fracture here. No pneumothorax or pleural effusion or acute lung infiltrate is seen. Hyperinflation is seen consistent with COPD. IMPRESSION: Nondisplaced fracture of the lateral aspect of the right sixth rib. Electronically signed by: Syed Barroso MD (11/09/2018 1:30 PM) [facility] Ribs x-ray shows patient has a nondisplaced fracture of the right rib area. No other acute processes seen. Discussed results and plan of care with patient Patient can be discharged home for outpatient follow-up with her PCP to 2 days. Appropriate discharge instructions given to patient to return to the patient to seek immediate medical evaluation. Dragon Disclaimer Dragon Disclaimer This electronic medical record was generated, in whole or in part, using a voice recognition dictation system. Departure Departure: Impression: Primary Impression: Closed rib fracture Disposition: 01 HOME, SELF-CARE Condition: STABLE Referrals: LEX MCHUGH (PCP) Please follow up in 1-2 days Patient Instructions: Rib Fracture Additional Instructions: Please follow up with PCP in one to 2 days. Please return to the ED if symptoms worsen or if any concerns. MISA JEFF DO Nov 09, 2018 13:18
--- NOTE | 2018-11-09 13:33 | RAD ---
2 view right rib detail series and PA view chest x-ray Clinical indications: Fall. Pain in the right side of the chest. There is near right axilla. FINDINGS: There is a fracture of the posterior aspect of the right 11th rib. This is old seen on previous chest CT dated October 03, 2017. There is mild deformity of the lateral aspect of the right sixth rib. This may represent a nondisplaced rib fracture here. No pneumothorax or pleural effusion or acute lung infiltrate is seen. Hyperinflation is seen consistent with COPD. IMPRESSION: Nondisplaced fracture of the lateral aspect of the right sixth rib. Electronically signed by: Syed Barroso MD (11/09/2018 1:30 PM) [facility]
== END 2018-11-09 14:03 | disposition home or self-care (01) ==
LOC: ER 12:32
DX: S22.31XA Fracture of one rib, right side, initial encounter for closed fracture (principal); J44.9 Chronic obstructive pulmonary disease, unspecified; G89.29 Other chronic pain; M54.89 Other dorsalgia; Z86.73 Personal history of transient ischemic attack (TIA), and cerebral infarction without residual deficits; Z87.891 Personal history of nicotine dependence; Z99.81 Dependence on supplemental oxygen; Z88.2 Allergy status to sulfonamides; W18.39XA Other fall on same level, initial encounter; Y93.89 Activity, other specified; Y92.89 Other specified places as the place of occurrence of the external cause; Y99.8 Other external cause status
CPT/HCPCS: 71101; 99283

== ENCOUNTER → 2019-05-25 | Outpatient (CLI) | payer MEDICARE, BC ==
--- NOTE | 2019-05-25 15:26 | RAD ---
Indication:Cough. Chest congestion. TECHNIQUE:PA and lateral views of the chest COMPARISON: 12/21/2017. FINDINGS: Heart is normal in size. Lungs are hyperinflated with interstitial opacities. No focal consolidation. Visualized bony thorax within normal limits. IMPRESSION: Findings of COPD with superimposed atypical/viral infection not ruled out. Electronically signed by: Terrell Muñoz DO (05/25/2019 3:23 PM) [id number]
== END | disposition home or self-care (01) ==
LOC: PMG 13:54
PROVIDERS: ATTEND Physician Assistant Medical
DX: R09.89 Other specified symptoms and signs involving the circulatory and respiratory systems (principal); R05 Cough
CPT/HCPCS: 71046

== ENCOUNTER 2019-09-11 18:09 | Emergency (ER) | payer MEDICARE, BC ==
[~2019-09-11] VITALS: Ht 152.4 cm; Wt 35.9 kg
[~2019-09-11 18:09] MED LIST changes: +OMEP40CA45 PO; -OMEP40CA5 PO
[2019-09-11] MEDS ORDERED: ALBUTEROL SULFATE 2.5 MG/3 ML NEBU. CONT NEB ONE (18:30)
[2019-09-11] MEDS ORDERED: IPRATROPIUM BROMIDE 0.5 MG/2.5 ML NEBU. NEB ONE (18:30)
[2019-09-11] MEDS ORDERED: methylPREDNISolone SOD SUCC PF 125 MG/2 ML VIAL. IV ONE (18:30)
[2019-09-11] MEDS ORDERED: IV NORMAL SALINE 500ML 500 ML IV ONE (18:30)
[2019-09-11 18:42] LABS: BASO # 0.1 x10^3/uL (0.0-0.2); BASO % 0 % (0-3); EOS % 0 % (0-3); HEMATOCRIT 43.4 % (36.0-47.0); HEMOGLOBIN 14.2 g/dL (12.0-15.5); LYMPH # 1.1 x10^3/uL (1.0-4.8); LYMPH % 4 % (24-48); MEAN CORPUSCULAR HEMOGLOBIN 31 pg (25-35); MEAN CORPUSCULAR HGB CONC 33 g/dL (31-37); MEAN CORPUSCULAR VOLUME 94 fL (79-100); MONO # 1.4 x10^3/uL (0.0-1.1); MONO % 6 % (0-9); NEUT # 23.3 x10^3uL (1.8-7.7); NEUT % 90 % (31-73); PLATELET COUNT 384 x10^3/uL (140-400); RED CELL DISTRIBUTION WIDTH 16.1 % (11.5-14.5); WHITE BLOOD COUNT 25.9 x10^3/uL (4.0-11.0)
[2019-09-11 18:51] LABS: CALCIUM 9.2 mg/dL (8.5-10.1); CREATININE 0.8 mg/dL (0.6-1.0); GFR 74.7; POTASSIUM 4.9 mmol/L (3.5-5.1)
[2019-09-11 19:04] LABS: ALBUMIN 2.9 g/dL (3.4-5.0); ALBUMIN/GLOBULIN RATIO 0.8 (1.0-1.7); TOTAL BILIRUBIN 0.8 mg/dL (0.2-1.0); TOTAL PROTEIN 6.5 g/dL (6.4-8.2)
[2019-09-11 19:16] LABS: INFLUENZA A PATIENT NEGATIVE (NEGATIVE); INFLUENZA B PATIENT NEGATIVE (NEGATIVE)
[2019-09-11 19:17] LABS: BGAS PH 7.3 (7.35-7.45)
--- NOTE | 2019-09-11 19:29 | RAD ---
CHEST AP ONLY Clinical Indication: Shortness of breath Comparison: 05/25/2019 two-view chest x-ray exam. Findings: Upright portable frontal view chest was obtained. Pulmonary hyperinflation noted. The cardiomediastinal silhouette is normal. No focal infiltrate. Extensive interstitial thickening of the lung burroughs again seen. Left axilla surgical clips are present. There is no pneumothorax. No pleural effusion is appreciated. No acute bone abnormality. IMPRESSION: COPD. No focal infiltrate. Interstitial thickening of lung burroughs again seen. Electronically signed by: Jadiel Hatfield MD (09/11/2019 7:26 PM) [facility]
[2019-09-11] MEDS ORDERED: FUROSEMIDE 40 MG/4 ML VIAL IVP ONE (20:00)
[2019-09-11 20:22] VITALS: BP 107/52
[2019-09-11 20:23] LABS: BGAS PH 7.4 (7.35-7.45)
--- NOTE | 2019-09-11 20:39 | PHYS DOC ---
Past History Past Medical History: Cancer, COPD, CVA Past Surgical History: No Surgical History Alcohol Use: None Additional Alcohol Information: unknown Drug Use: None Social History Narrative: unknown Adult General Chief Complaint Chief Complaint: SHORTNESS OF BREATH HPI HPI Patient is a 53-year-old female with remote history of breast cancer with right- sided mastectomy, COPDsupplemental O2 dependent, who presents with progressive shortness of breath over the past 3 days. Reports chest tightness, increased breathing at rest with inability to speak more than one to 2 word sentences. Patient had difficulty filling her nebulized treatment restrictions and has been without breathing treatments for the past 3 days. EMS arrival, patient's O2 saturations were in the upper 60s. The patient was placed on a CPAP and O2 sats saturations improved to 80%. History is limited based upon the patient's clinical condition and lack of availability of medical records..[] Review of Systems Review of Systems Review of symptoms as per history of present illness. In the day due to presentation All other systems were reviewed and found to be within normal limits, except as documented in this note. Current Medications Current Medications Current Medications Medications (Trade) Dose Ordered Sig/[place] Start Time Stop Time Status Last Admin Dose Admin Albuterol Sulfate (Ventolin) 10 mg 1X ONCE 09/11/19 18:30 09/11/19 18:31 DC 09/11/19 18:46 10 MG Furosemide (Lasix) 40 mg 1X ONCE 09/11/19 20:00 09/11/19 20:03 DC 09/11/19 20:11 40 MG Ipratropium [place] (Atrovent) 1 mg 1X ONCE 09/11/19 18:30 09/11/19 18:31 DC 09/11/19 18:45 1 MG Levofloxacin/ Dextrose 100 ml @ 100 mls/hr 1X ONCE 09/11/19 20:00 09/11/19 20:59 09/11/19 20:10 100 MLS/HR Methylprednisolone Sodium Succinate (SOLU-Medrol 125MG VIAL) 62.5 mg 1X ONCE 09/11/19 18:30 09/11/19 18:31 DC 09/11/19 20:11 62.5 MG Sodium Chloride 500 ml @ 0 mls/hr 1X ONCE 09/11/19 18:30 09/11/19 18:31 DC 09/11/19 20:10 500 MLS/HR Allergies Allergies Allergies Coded Allergies Type Severity Reaction Last Updated Verified Sulfa (Sulfonamide Antibiotics) Allergy Intermediate 09/11/19 Yes Physical Exam Physical Exam Constitutional: Cachectic, fatigued moderate to severe respiratory distress with impending failure. [] HENT: Normocephalic, atraumatic, bilateral external ears normal, oropharynx moist, nose normal. [] Eyes: PERRLA, EOMI. [] Neck: Normal range of motion, no tenderness, supple, JVD. [] Cardiovascular: Tachycardic, regular rhythm.[] Lungs & Thorax: Guppy breathing with tracheal tugging and retractions, [] Abdomen: Bowel sounds normal, soft, no tenderness. [] Skin: Warm, dry. [] Back: No tenderness. [] Extremities: Peripheral edema. [] Neurologic: Alert and oriented X to person, normal motor function, normal sensory function, no focal deficits noted. [] Psychologic: Affect anxious, judgement normal, mood normal. [] Current Patient Data Vital Signs Vital Signs Date Time Temp Pulse Resp B/P (MAP) Pulse Ox O2 Delivery O2 Flow Rate FiO2 09/11/19 20:22 112 20 107/52 (70) 93 BiPAP/CPAP 09/11/19 18:45 10.0 09/11/19 18:15 97.6 Lab Results Laboratory Tests Test 09/11/19 18:25 09/11/19 18:26 09/11/19 18:48 09/11/19 20:05 White Blood Count 25.9 x10^3/uL (4.0-11.0) H Red Blood Count 4.60 x10^6/uL (3.50-5.40) Hemoglobin 14.2 g/dL (12.0-15.5) Hematocrit 43.4 % (36.0-47.0) Mean Corpuscular Volume 94 fL (79-100) Mean Corpuscular Hemoglobin 31 pg (25-35) Mean Corpuscular Hemoglobin Concent 33 g/dL (31-37) Red Cell Distribution Width 16.1 % (11.5-14.5) H Platelet Count 384 x10^3/uL (140-400) Neutrophils (%) (Auto) 90 % (31-73) H Lymphocytes (%) (Auto) 4 % (24-48) L Monocytes (%) (Auto) 6 % (0-9) Eosinophils (%) (Auto) 0 % (0-3) Basophils (%) (Auto) 0 % (0-3) Neutrophils # (Auto) 23.3 x10^3uL (1.8-7.7) H Lymphocytes # (Auto) 1.1 x10^3/uL (1.0-4.8) Monocytes # (Auto) 1.4 x10^3/uL (0.0-1.1) H Eosinophils # (Auto) 0.0 x10^3/uL (0.0-0.7) Basophils # (Auto) 0.1 x10^3/uL (0.0-0.2) Platelet Estimate Pending Blood pH 7.30 (7.35-7.45) L 7.40 (7.35-7.45) Blood Gas PCO2 82 mmHg (35-45) *H 61 mmHg (35-45) *H Blood Gas PO2 66 mmHg (80-100) L 55 mmHg (80-100) L Blood Gas HCO3 41 mmol/L (22-26) H 39 mmol/L (22-26) H Arterial Bld O2 Saturation (Calc) 89 % (92-99) L 87 % (92-99) L FiO2 36 % 35 % Sodium Level 145 mmol/L (136-145) Potassium Level 4.9 mmol/L (3.5-5.1) Chloride Level 102 mmol/L (98-107) Carbon Dioxide Level 38 mmol/L (21-32) H Anion Gap 5 (6-14) L Blood Urea Nitrogen 43 mg/dL (7-20) H Creatinine 0.8 mg/dL (0.6-1.0) Estimated GFR (Cockcroft-Gault) 74.7 BUN/Creatinine Ratio 54 (6-20) H Glucose Level 87 mg/dL (70-99) Lactic Acid Level 1.6 mmol/L (0.4-2.0) Calcium Level 9.2 mg/dL (8.5-10.1) Total Bilirubin 0.8 mg/dL (0.2-1.0) Aspartate Amino Transferase (AST) 731 U/L (15-37) H Alanine Aminotransferase (ALT) 522 U/L (14-59) H Alkaline Phosphatase 162 U/L (46-116) H Troponin I Quantitative 0.622 ng/mL (0-0.055) H BY-Jur-S-Type Natriuretic Peptide 95694 pg/mL (0-124) H Total Protein 6.5 g/dL (6.4-8.2) Albumin 2.9 g/dL (3.4-5.0) L Albumin/Globulin Ratio 0.8 (1.0-1.7) L Glucose (Fingerstick) 78 mg/dL (70-99) Influenza Type A (Rapid) Negative (NEGATIVE) Influenza Type B (Rapid) Negative (NEGATIVE) EKG EKG [EKG: Sinus tach, frequent PACs, left ventricular strain pattern nonspecific ST- T wave changes. X-ray: Increased interstitial markings. Severe COPD] Radiology/Procedures Radiology/Procedures [Central line procedure note Indication: need for IV access] Consent: [verbal-URGENT] Procedure: The patient was positioned appropriately and the skin over the right femoral VEIN] was preppred]. Local anesthesia was lidocaine]. A large bore needle was used to identify the vein, was unsuccessful and cannulized the right femoral artery. The needle was removed and pressure was held over the artery. The left groin was then prepped and cleansed with chlorhexidine and lidocaine was injected over the femoral vein. A guide wire was then inserted into the vein through the needle. [Triple-lumen was then inserted into the vessel over the guide wire using the Seldinger technique. All ports showed good, free flowing blood return and were flushed with saline solution. The catheter was then securely fastened to the skin [suture and covered with a sterile dressing. ]. The patient tolerated the procedure well. Complications: Right femoral artery arterial puncture, bleeding controlled with compression]] Course & Med Decision Making Course & Med Decision Making Pertinent Labs and Imaging studies reviewed. (See chart for details) She with acute on chronic respiratory failuremultifactorial. Likely non-STEMI secondary to hypoxia with congestive heart failure and COPD exacerbation. Suspect elevated white blood cell count secondary to stress reaction. Patient proved/stabilized on BiPAP. Lasix, antibiotics given. Dr. Grande accepts to the ICU.] Critical care time: 65 minutes Messi Disclaimer Dragon Disclaimer This electronic medical record was generated, in whole or in part, using a voice recognition dictation system. Departure Departure: Impression: Primary Impression: Acute respiratory failure with hypoxia and hypercarbia Additional Impressions: CHF (congestive heart failure) COPD exacerbation Non-STEMI (non-ST elevated myocardial infarction) Disposition: 02 XFER SHT-TRM HOSP Condition: GUARDED Problem Qualifiers ROBERTO JOHNSTON DO Sep 11, 2019 20:39
[2019-09-11 21:14] LABS: % LYMPHS 1 % (24-48); % MONOS 8 % (0-10); % SEGS 91 % (35-66)
[2019-09-11 21:17] LABS: PLT ESTIMATE ADEQUATE (ADEQUATE)
--- NOTE | 2019-09-11 23:10 | EKG ---
[address] [address] Test Date: 2019-09-11 Test Time: 20:18:47 Pat Name: LIZBETH OHARA Department: Room: Gender: F Assembly Inspector: : 1965 Requested By: ROBERTO JOHNSTON Order Number: [id number] Reading MD: Measurements Intervals [place] Rate: 132 P: 90 [place]: 92 QRS: 84 QRSD: 80 T: -62 QT: 282 QTc: 421 Interpretive Statements SINUS TACHYCARDIA ATRIAL PREMATURE COMPLEX(ES) RIGHT ATRIAL ENLARGEMENT ST & T ABNORMALITY, CONSIDER INFERIOR ISCHEMIA OR LEFT VENTRICULAR STRAIN ABNORMAL ECG RI6.01 No previous ECG available for comparison
== END 2019-09-11 21:07 | disposition short-term general hospital (02) ==
LOC: ER 18:09
DX: J96.01 Acute respiratory failure with hypoxia (principal); J96.02 Acute respiratory failure with hypercapnia; I50.9 Heart failure, unspecified; J44.1 Chronic obstructive pulmonary disease with (acute) exacerbation; I21.4 Non-ST elevation (NSTEMI) myocardial infarction; Z99.81 Dependence on supplemental oxygen; Z86.73 Personal history of transient ischemic attack (TIA), and cerebral infarction without residual deficits; Z88.2 Allergy status to sulfonamides
CPT/HCPCS: 36415; 36556; 36600; 51702; 71045; 80053; 82803; 82947; 83605; 83880; 84484; 85007; 85025; 87040; 87804; 93005; 94644; 96365; 96375; 99291; J1940; J1956; J2930; J7040; J7613; J7644; 94640